=== PATIENT | male | born 1975 | race Caucasian/White ===

== ENCOUNTER 2022-09-17 21:10 | Inpatient (IN) | payer OTHER ==
[~2022-09-17] VITALS: Ht 195.6 cm; Wt 127.0 kg
[2022-09-17 22:16] LABS: BASOPHILS # (AUTO) 0.1 (0.0-0.1); BASOPHILS % 0.6 % (0.0-1.0); EOSINOPHILS # (AUTO) 0.4 (0.0-0.4); EOSINOPHILS % 4.3 % (0.0-6.0); HEMOGLOBIN 11.8 g/dL (14.0-18.0); LYMPHOCYTES # (AUTO) 2.4 (1.0-3.2); LYMPHOCYTES % 25.5 % (18.0-39.1); MEAN CORPUSCULAR HEMOGLOBIN 27.8 pg (28-32); MEAN CORPUSCULAR HGB CONC 32.8 g/dL (31-35); MEAN CORPUSCULAR VOLUME 84.9 fL (81-99); MONOCYTES # (AUTO) 0.7 (0.2-0.8); MONOCYTES % 7.6 % (4.4-11.3); NEUTROPHILS # (AUTO) 5.7 (2.1-6.9); NEUTROPHILS % 61.7 % (38.7-80.0); PLATELET COUNT 277 x10e3/uL (140-360); RED BLOOD COUNT 4.24 x10e6/uL (4.3-5.7); RED CELL DISTRIBUTION WIDTH 13.1 % (11.7-14.4)
[2022-09-17 22:17] LABS: CLARITY,URINE CLEAR (CLEAR); COLOR,URINE YELLOW (YELLOW); KETONES,URINE NEGATIVE (NEGATIVE); LEUKOCYTE ESTERASE ,URINE NEGATIVE (NEGATIVE); NITRITE,URINE NEGATIVE (NEGATIVE); PROTEIN,URINE DIPSTICK NEGATIVE (NEGATIVE); URINE UROBILINOGEN 0.2 mg/dL (0.2 - 1)
[2022-09-17 22:21] LABS: BACTERIA,URINE RARE /HPF; EPITHELIAL CELLS,URINE RARE /LPF; WBC,URINE (MAN) 0-5 /HPF (0-5)
[2022-09-17] MEDS: SODIUM CHLORIDE 0.9% 1000ML 1,000 ML IV SCH (22:26)
[2022-09-17] MEDS: Morphine 4mg INJECTION 4 MG/ML INJ IV PRN (22:27)
[2022-09-17] MEDS: ONDANSETRON HCL INJ 2MG/ML 2ML 2 MG/ML VIAL IV PRN (22:27)
[2022-09-17 22:34] LABS: ALBUMIN 3.6 g/dL (3.5-5.0); ALBUMIN/GLOBULIN RATIO 0.9 (0.8-2.0); ANION GAP 15.6 mmol/L (8-16); CALCIUM 9.5 mg/dL (8.4-10.2); CREATININE, SERUM 1.03 mg/dL (0.72-1.25); POTASSIUM 3.6 mmol/L (3.5-5.1)
[2022-09-18] MEDS: ONDANSETRON HCL INJ 2MG/ML 2ML 2 MG/ML VIAL IV PRN ×3 (04:56→17:16)
[2022-09-18] MEDS: Morphine 4mg INJECTION 4 MG/ML INJ IV PRN ×4 (04:56→21:35)
[2022-09-18] MEDS: SODIUM CHLORIDE 0.9% 1000ML 1,000 ML IV SCH ×2 (06:05→15:54)
[2022-09-18 10:28] LABS: BASOPHILS # (AUTO) 0.1 (0.0-0.1); BASOPHILS % 0.8 % (0.0-1.0); EOSINOPHILS # (AUTO) 0.3 (0.0-0.4); EOSINOPHILS % 4.8 % (0.0-6.0); HEMATOCRIT 37.9 % (38.2-49.6); LYMPHOCYTES # (AUTO) 1.7 (1.0-3.2); LYMPHOCYTES % 25.5 % (18.0-39.1); MEAN CORPUSCULAR HEMOGLOBIN 28.2 pg (28-32); MEAN CORPUSCULAR HGB CONC 31.7 g/dL (31-35); MEAN CORPUSCULAR VOLUME 89.2 fL (81-99); MONOCYTES # (AUTO) 0.4 (0.2-0.8); MONOCYTES % 6.5 % (4.4-11.3); NEUTROPHILS # (AUTO) 4.1 (2.1-6.9); NEUTROPHILS % 61.9 % (38.7-80.0); PLATELET COUNT 245 x10e3/uL (140-360); RED BLOOD COUNT 4.25 x10e6/uL (4.3-5.7); RED CELL DISTRIBUTION WIDTH 13.1 % (11.7-14.4)
[2022-09-18 11:07] LABS: ALBUMIN 3.4 g/dL (3.5-5.0); ALBUMIN/GLOBULIN RATIO 0.9 (0.8-2.0); ANION GAP 15.7 mmol/L (8-16); CALCIUM 8.8 mg/dL (8.4-10.2); CREATININE, SERUM 0.84 mg/dL (0.72-1.25); POTASSIUM 3.7 mmol/L (3.5-5.1)
[2022-09-18] MEDS ORDERED: HYDRALAZINE HCL 20 MG/ML VIAL IV PRN (11:15)
[2022-09-18] MEDS ORDERED: ACETAMINOPHEN 325 MG TAB PO PRN (11:15)
[2022-09-18] MEDS ORDERED: METOCLOPRAMIDE HCL 10 MG/2ML VIAL ONE (11:22)
[2022-09-18] MEDS ORDERED: PROPOFOL IV EMULSION 10 MG/ML 20 ML VIAL ONE (11:22)
[2022-09-18] MEDS ORDERED: SEVOFLURANE INHAL SOLN 250 ML PEN BTL ONE (11:22)
[2022-09-18] MEDS ORDERED: ONDANSETRON HCL INJ 2MG/ML 2ML 2 MG/ML VIAL ONE (11:22)
[2022-09-18] MEDS ORDERED: LIDOCAINE HCL 2% LOCAL INJ 5 ML SDV VIAL INJ ONE (11:22)
[2022-09-18] MEDS ORDERED: KETOROLAC TROMETHAMINE 30 MG/ML VIAL ONE (11:22)
[2022-09-18] MEDS ORDERED: POVIDONE IODINE 0.05% 0.05 % ML PO ONE (11:22)
[2022-09-18] MEDS ORDERED: BUPIVACAINE HCL 0.5% INJ 30 ML VIAL INJ ONE (11:49)
[2022-09-18] MEDS ORDERED: DEXAMETHASONE SOD PHOS INJ 4 MG/ML SDV ONE (11:50)
[2022-09-18] MEDS ORDERED: NEOSTIGMINE 1 MG/ML 10ML VIAL ONE (11:50)
[2022-09-18] MEDS ORDERED: DEXTROSE 50% SYRINGE 50 ML IV PRN (13:15)
[2022-09-18] MEDS ORDERED: FENTANYL CITRATE/PF 100MCG/2 ML INJ ONE (13:45)
[2022-09-18] MEDS ORDERED: MIDAZOLAM HCL 2 MG/2 ML VIAL ONE (13:45)
[2022-09-18 13:50] VITALS: BP 133/86; PULSE 79; RESP 18; TEMP 98.1; O2SAT 100
[2022-09-18 14:29] VITALS: BP 133/86; PULSE 79; RESP 18; TEMP 98.1; O2SAT 100
[2022-09-18 14:35] VITALS: BP 133/86; PULSE 79; RESP 18; TEMP 98.1; O2SAT 100
[2022-09-18] MEDS ORDERED: AMLODIPINE BESY10 MG PO (14:52)
[2022-09-18] MEDS ORDERED: CILOSTAZOL100 MG PO (14:52)
[2022-09-18] MEDS ORDERED: LISINOPRIL10 MG PO (14:52)
[2022-09-18] MEDS ORDERED: METFORMIN HCL850 MG PO (14:52)
[2022-09-18] MEDS ORDERED: SIMVASTATIN20 MG PO (14:52)
[2022-09-18] MEDS ORDERED: PAROXETINE HCL20 MG PO (14:52)
[2022-09-18] MEDS ORDERED: ASPIRIN81 MG PO (14:52)
[2022-09-18] MEDS ORDERED: HYDROCHLOROTHIA25 MG PO (14:52)
[2022-09-18] MEDS ORDERED: GEMFIBROZIL600 MG PO (14:52)
[2022-09-18] MEDS ORDERED: GABAPENTIN300 MG PO (14:52)
[2022-09-18 15:58] VITALS: BP 115/79; PULSE 76; RESP 20; TEMP 97.6; O2SAT 100
[2022-09-18] MEDS: INSULIN REGULAR, HUMAN 100 UNIT/1 ML SQ SCH ×2 (16:46→21:44)
[2022-09-18 20:27] VITALS: BP 124/88; PULSE 80; RESP 17; TEMP 98.1; O2SAT 100
[2022-09-19] VITALS (9 sets, daily range): BP systolic 121–150; BP diastolic 80–94; PULSE 84–104; RESP 17–21; TEMP 98.2–99.4; O2SAT 99–100
[2022-09-19] MEDS: Morphine 4mg INJECTION 4 MG/ML INJ IV PRN ×3 (03:35→10:59)
[2022-09-19] MEDS: SODIUM CHLORIDE 0.9% 1000ML 1,000 ML IV SCH ×2 (03:35→06:00)
[2022-09-19] MEDS: INSULIN REGULAR, HUMAN 100 UNIT/1 ML SQ SCH ×4 (08:21→21:12)
[2022-09-19] MEDS: HYDROMORPHONE 1MG/1ML INJ IV PRN ×3 (14:06→22:41)
[2022-09-19] MEDS: GABAPENTIN 300 MG CAP PO SCH (16:08)
[2022-09-19] MEDS: GEMFIBROZIL 600 MG TAB PO SCH (16:08)
[2022-09-19] MEDS: LISINOPRIL 10 MG TAB PO SCH (16:15)
[2022-09-19] MEDS: SIMVASTATIN 20 MG TAB PO SCH (20:50)
[2022-09-19] MEDS: HYDROCODONE/APAP 5MG-325MG TAB PO PRN (21:05)
[2022-09-19] MEDS: ONDANSETRON HCL INJ 2MG/ML 2ML 2 MG/ML VIAL IV PRN (22:41)
[2022-09-20] VITALS (9 sets, daily range): BP systolic 114–143; BP diastolic 55–88; PULSE 78–97; RESP 15–19; TEMP 98.2–98.7; O2SAT 98–100
[2022-09-20] MEDS: HYDROMORPHONE 1MG/1ML INJ IV PRN ×4 (02:51→22:13)
[2022-09-20 05:38] LABS: BASOPHILS % 0.6 % (0.0-1.0); EOSINOPHILS # (AUTO) 0.4 (0.0-0.4); EOSINOPHILS % 5.7 % (0.0-6.0); HEMATOCRIT 34.7 % (38.2-49.6); HEMOGLOBIN 11.1 g/dL (14.0-18.0); LYMPHOCYTES # (AUTO) 1.6 (1.0-3.2); LYMPHOCYTES % 21.5 % (18.0-39.1); MEAN CORPUSCULAR VOLUME 87.4 fL (81-99); MONOCYTES # (AUTO) 0.6 (0.2-0.8); MONOCYTES % 8.9 % (4.4-11.3); NEUTROPHILS # (AUTO) 4.5 (2.1-6.9); NEUTROPHILS % 62.9 % (38.7-80.0); PLATELET COUNT 217 x10e3/uL (140-360); RED BLOOD COUNT 3.97 x10e6/uL (4.3-5.7)
[2022-09-20 05:52] LABS: CREATININE, SERUM 0.77 mg/dL (0.72-1.25)
[2022-09-20 05:53] LABS: CALCIUM 8.6 mg/dL (8.4-10.2)
[2022-09-20] MEDS: GEMFIBROZIL 600 MG TAB PO SCH ×2 (08:03→16:45)
[2022-09-20] MEDS: HYDROCHLOROTHIAZIDE 25 MG TAB PO SCH (08:03)
[2022-09-20] MEDS: ASPIRIN 81 MG CHEW TAB PO SCH (08:03)
[2022-09-20] MEDS: GABAPENTIN 300 MG CAP PO SCH ×2 (08:04→16:45)
[2022-09-20] MEDS: AMLODIPINE BESYLATE 10 MG TAB PO SCH (08:04)
[2022-09-20] MEDS: PAROXETINE HCL 20 MG TAB PO SCH (08:04)
[2022-09-20] MEDS: LISINOPRIL 10 MG TAB PO SCH (08:04)
[2022-09-20] MEDS: CILOSTAZOL 100 MG TAB PO SCH (08:04)
[2022-09-20] MEDS: INSULIN REGULAR, HUMAN 100 UNIT/1 ML SQ SCH ×4 (08:08→21:27)
[2022-09-20] MEDS ORDERED: LISINOPRIL 10 MG TAB PO SCH (09:00)
[2022-09-20] MEDS: HYDROCODONE/APAP 5MG-325MG TAB PO PRN (12:15)
[2022-09-20] MEDS: SIMVASTATIN 20 MG TAB PO SCH (21:22)
[2022-09-21 00:39] VITALS: BP 128/88; PULSE 87; RESP 16; TEMP 98.1; O2SAT 98
[2022-09-21 06:41] VITALS: BP 143/92; PULSE 89; RESP 18; TEMP 98.1; O2SAT 98
[2022-09-21] MEDS: INSULIN REGULAR, HUMAN 100 UNIT/1 ML SQ SCH ×3 (07:30→16:30)
[2022-09-21] MEDS: ASPIRIN 81 MG CHEW TAB PO SCH (10:45)
[2022-09-21] MEDS: GABAPENTIN 300 MG CAP PO SCH ×2 (10:46→17:49)
[2022-09-21] MEDS: CILOSTAZOL 100 MG TAB PO SCH (10:46)
[2022-09-21] MEDS: PAROXETINE HCL 20 MG TAB PO SCH (10:46)
[2022-09-21] MEDS: AMLODIPINE BESYLATE 10 MG TAB PO SCH (10:47)
[2022-09-21] MEDS: GEMFIBROZIL 600 MG TAB PO SCH ×2 (10:47→17:49)
[2022-09-21] MEDS: HYDROCHLOROTHIAZIDE 25 MG TAB PO SCH (10:48)
[2022-09-21] MEDS: LISINOPRIL 10 MG TAB PO SCH (10:48)
[2022-09-21] MEDS ORDERED: ULTRAM 50MG50 MG PO ×2 (11:34→17:20)
[2022-09-21] MEDS ORDERED: CEFAZOLIN SODIUM 2 GM in SODIUM CHLORIDE 0.9% 100 ML IV SCH (16:00)
[2022-09-21] MEDS ORDERED: ONDANSETRON HCL 4 MG ORAL DISINTEGRATING TAB PO PRN (16:00)
[2022-09-21] MEDS ORDERED: CEPHALEXIN500 MG PO (16:25)
[2022-09-21] MEDS: HYDROMORPHONE 1MG/1ML INJ IV PRN (17:50)
== END 2022-09-21 18:02 | disposition home or self-care (01) | DRG 617 ==
LOC: ER 21:15 → ERHOLD 21:46 → PACU V 09-18 13:18 → MED/SURG2 09-18 13:46
PROVIDERS: ADMIT Internal Medicine; ATTEND Internal Medicine
PROC: 0Y6N0Z9 Detachment at Left Foot, Partial 1st Ray, Open Approach (ICD-10-PCS; principal; 2022-09-18 12:22)
DX: E11.69 Type 2 diabetes mellitus with other specified complication (principal); L97.528 Non-pressure chronic ulcer of other part of left foot with other specified severity; M86.9 Osteomyelitis, unspecified; Z16.24 Resistance to multiple antibiotics; E11.621 Type 2 diabetes mellitus with foot ulcer; Z20.822 Contact with and (suspected) exposure to COVID-19; E11.42 Type 2 diabetes mellitus with diabetic polyneuropathy; E78.5 Hyperlipidemia, unspecified; M10.9 Gout, unspecified; I10 Essential (primary) hypertension; E78.00 Pure hypercholesterolemia, unspecified; B95.61 Methicillin susceptible Staphylococcus aureus infection as the cause of diseases classified elsewhere; Z89.422 Acquired absence of other left toe(s); Z89.421 Acquired absence of other right toe(s); Z79.84 Long term (current) use of oral hypoglycemic drugs; Z79.899 Other long term (current) drug therapy
CPT/HCPCS: 36415; 71046; 80048; 80053; 81001; 82948; 85025; 87071; 87075; 87186; 87205; 88304; 88305; 88311; 99284; J0690; J1100; J1170; J1885; J2001; J2250; J2270; J2405; J2543; J2710; J2765; J7030

== ENCOUNTER 2023-07-08 18:50 | Inpatient (IN) | payer OTHER ==
[~2023-07-08] VITALS: Ht 193 cm; Wt 124.7 kg
[~2023-07-08 18:50] MED LIST: AMLODIPINE BESY10 MG PO; ASPIRIN81 MG PO; CEPHALEXIN500 MG PO; CILOSTAZOL100 MG PO; GABAPENTIN300 MG PO; GEMFIBROZIL600 MG PO; HYDROCHLOROTHIA25 MG PO; Insulin Glargine SQ; Insulin Lispro SQ; LISINOPRIL10 MG PO; METFORMIN HCL850 MG PO; PAROXETINE HCL20 MG PO; SIMVASTATIN20 MG PO; TOPIRAMATE25 MG PO; ULTRAM 50MG50 MG PO
[2023-07-08] MEDS ORDERED: DEXTROSE 50% SYRINGE 50 ML IV PRN (19:45)
[2023-07-08 19:55] LABS: BASOPHILS # (AUTO) 0.1 (0.0-0.1); BASOPHILS % 0.6 % (0.0-1.0); EOSINOPHILS # (AUTO) 0.4 (0.0-0.4); EOSINOPHILS % 3.9 % (0.0-6.0); HEMATOCRIT 37.3 % (38.2-49.6); HEMOGLOBIN 12.7 g/dL (14.0-18.0); LYMPHOCYTES # (AUTO) 2.2 (1.0-3.2); LYMPHOCYTES % 21.7 % (18.0-39.1); MEAN CORPUSCULAR HEMOGLOBIN 28.6 pg (28-32); MONOCYTES # (AUTO) 0.7 (0.2-0.8); MONOCYTES % 6.8 % (4.4-11.3); NEUTROPHILS # (AUTO) 6.7 (2.1-6.9); NEUTROPHILS % 66.7 % (38.7-80.0); PLATELET COUNT 184 x10e3/uL (140-360); RED BLOOD COUNT 4.44 x10e6/uL (4.3-5.7); RED CELL DISTRIBUTION WIDTH 13.1 % (11.7-14.4); WHITE BLOOD COUNT 9.97 x10e3/uL (4.8-10.8)
[2023-07-08 20:05] LABS: INR 0.89; PARTIAL THROMBOPLASTIN TIME 29.2 seconds (23.8-35.5); PROTHROMBIN TIME 12.7 seconds (11.9-14.5)
[2023-07-08] MEDS: ONDANSETRON HCL INJ 2MG/ML 2ML 2 MG/ML VIAL IV PRN (20:10)
[2023-07-08] MEDS: Vancomycin IV 1 GM in SODIUM CHLORIDE 0.9% 250ML 250 ML IV SCH (20:10)
[2023-07-08] MEDS: Morphine 4mg INJECTION 4 MG/ML INJ IV PRN (20:10)
[2023-07-08 20:14] LABS: ALBUMIN 3.8 g/dL (3.5-5.0); ALBUMIN/GLOBULIN RATIO 1.1 (0.8-2.0); ANION GAP 16.9 mmol/L (8-16); BILIRUBIN,TOTAL 0.4 mg/dL (0.2-1.2); CREATININE, SERUM 1.13 mg/dL (0.72-1.25); POTASSIUM 3.9 mmol/L (3.5-5.1); TOTAL PROTEIN 7.2 g/dL (6.5-8.1)
[2023-07-08] MEDS: INSULIN REGULAR, HUMAN 100 UNIT/1 ML SQ SCH (21:00)
[2023-07-08] MEDS: SODIUM CHLORIDE 0.9% 1000ML 1,000 ML IV SCH (21:45)
[2023-07-08] MEDS ORDERED: INSULIN GLARGINE 100 UNITS/ML VIAL SQ SCH (21:45)
[2023-07-09 05:21] LABS: BASOPHILS # (AUTO) 0.1 (0.0-0.1); BASOPHILS % 0.6 % (0.0-1.0); EOSINOPHILS # (AUTO) 0.5 (0.0-0.4); EOSINOPHILS % 5.9 % (0.0-6.0); HEMATOCRIT 32.9 % (38.2-49.6); HEMOGLOBIN 11.1 g/dL (14.0-18.0); LYMPHOCYTES # (AUTO) 1.7 (1.0-3.2); LYMPHOCYTES % 21.8 % (18.0-39.1); MEAN CORPUSCULAR HGB CONC 33.7 g/dL (31-35); MEAN CORPUSCULAR VOLUME 85.9 fL (81-99); MONOCYTES # (AUTO) 0.7 (0.2-0.8); MONOCYTES % 8.3 % (4.4-11.3); NEUTROPHILS # (AUTO) 4.9 (2.1-6.9); PLATELET COUNT 166 x10e3/uL (140-360); RED BLOOD COUNT 3.83 x10e6/uL (4.3-5.7); RED CELL DISTRIBUTION WIDTH 13.4 % (11.7-14.4); WHITE BLOOD COUNT 7.83 x10e3/uL (4.8-10.8)
[2023-07-09 06:33] LABS: ALBUMIN 3.2 g/dL (3.5-5.0); ALBUMIN/GLOBULIN RATIO 1.1 (0.8-2.0); BILIRUBIN,TOTAL 0.4 mg/dL (0.2-1.2); CALCIUM 8.4 mg/dL (8.4-10.2); CREATININE, SERUM 0.89 mg/dL (0.72-1.25); TOTAL PROTEIN 6.1 g/dL (6.5-8.1)
[2023-07-09] MEDS: GEMFIBROZIL 600 MG TAB PO SCH (07:30)
[2023-07-09 07:51] VITALS: BP 130/80; PULSE 78; RESP 18; TEMP 97.5; O2SAT 100
[2023-07-09 07:55] VITALS: BP 130/80; PULSE 78; RESP 18; TEMP 97.5; O2SAT 100
[2023-07-09] MEDS: AMLODIPINE BESYLATE 10 MG TAB PO SCH (08:19)
[2023-07-09] MEDS: CILOSTAZOL 100 MG TAB PO SCH (08:19)
[2023-07-09] MEDS: LISINOPRIL 20 MG TAB PO SCH (08:19)
[2023-07-09] MEDS: PAROXETINE HCL 20 MG TAB PO SCH (08:19)
[2023-07-09] MEDS: HYDROCHLOROTHIAZIDE 25 MG TAB PO SCH (08:19)
[2023-07-09] MEDS: ASPIRIN 81 MG CHEW TAB PO SCH (08:19)
[2023-07-09] MEDS: TOPIRAMATE 25 MG TAB PO SCH (08:20)
[2023-07-09] MEDS: GABAPENTIN 300 MG CAP PO SCH (08:20)
[2023-07-09] MEDS ORDERED: PIPERACILLIN/TAZOBACTAM 3.375 GM VIAL ONE ×2 (09:35→15:50)
[2023-07-09] MEDS ORDERED: SODIUM CHLORIDE 0.9% 250ML 250 ML ONE ×2 (09:36→19:28)
[2023-07-09] MEDS ORDERED: SODIUM CHLORIDE 0.9% 1000ML 1,000 ML ONE ×2 (09:36→18:03)
[2023-07-09] MEDS ORDERED: Vancomycin IV 1 GM VIAL ONE ×2 (09:37→19:27)
[2023-07-09] MEDS ORDERED: SODIUM CHLORIDE 0.9% INJ 100 ML BAG ONE (10:24)
[2023-07-09] MEDS ORDERED: PROPOFOL IV EMULSION 10 MG/ML 20 ML VIAL ONE (10:24)
[2023-07-09] MEDS ORDERED: ONDANSETRON HCL INJ 2MG/ML 2ML 2 MG/ML VIAL ONE ×2 (10:24→15:30)
[2023-07-09] MEDS ORDERED: DEXMEDETOMIDINE HCL 200 MCG/2 ML VIAL ONE (10:24)
[2023-07-09] MEDS ORDERED: ACETAMINOPHEN 1000 MG/100 ML IV ONE (10:24)
[2023-07-09] MEDS ORDERED: LIDOCAINE HCL 2% LOCAL INJ 5 ML SDV VIAL INJ ONE (10:24)
[2023-07-09] MEDS ORDERED: METOCLOPRAMIDE HCL 10 MG/2ML VIAL ONE (10:24)
[2023-07-09] MEDS ORDERED: SEVOFLURANE INHAL SOLN 250 ML PEN BTL ONE (10:24)
[2023-07-09] MEDS ORDERED: NOVOLIN N100 UNIT/1 SQ (10:32)
[2023-07-09] MEDS ORDERED: NOVOLIN R100 UNIT/1 SQ (10:34)
[2023-07-09] MEDS ORDERED: FLUOXETINE HCL 20 MG CAP ONE (10:50)
[2023-07-09] MEDS ORDERED: BUPIVACAINE HCL 0.5% INJ 30 ML VIAL INJ ONE (10:52)
[2023-07-09] MEDS ORDERED: NEOSTIGMINE 1 MG/ML 10ML VIAL ONE (10:52)
[2023-07-09] MEDS ORDERED: PAROXETINE HCL 20 MG TAB ONE (10:53)
[2023-07-09] MEDS: PAROXETINE HCL 20 MG TAB PO ONE (10:53)
[2023-07-09] MEDS ORDERED: Morphine 4mg INJECTION 4 MG/ML INJ ONE ×2 (15:31→19:18)
[2023-07-09] MEDS ORDERED: CILOSTAZOL 100 MG TAB ONE (15:49)
[2023-07-09] MEDS ORDERED: GABAPENTIN 300 MG CAP ONE (15:49)
[2023-07-09] MEDS ORDERED: FENTANYL CITRATE/PF 100MCG/2 ML INJ ONE (15:50)
[2023-07-09] MEDS ORDERED: GEMFIBROZIL 600 MG TAB ONE (15:50)
[2023-07-09] MEDS ORDERED: MIDAZOLAM HCL 2 MG/2 ML VIAL ONE (15:50)
[2023-07-09] MEDS ORDERED: TOPIRAMATE 25 MG TAB ONE (15:50)
[2023-07-09] MEDS ORDERED: INSULIN REGULAR, HUMAN 100 UNIT/1 ML ONE (15:54)
[2023-07-09] MEDS: ACETAMINOPHEN 325 MG TAB PO PRN (16:30)
[2023-07-09] MEDS ORDERED: ACETAMINOPHEN 325 MG TAB ONE (16:33)
[2023-07-09 16:36] VITALS: BP 128/87; PULSE 87; RESP 17; TEMP 97.8; O2SAT 99
[2023-07-09] MEDS: HYDROCODONE/APAP 5MG-325MG TAB PO PRN (17:43)
[2023-07-09] MEDS ORDERED: HYDROCODONE/APAP 5MG-325MG TAB ONE (17:46)
[2023-07-09] MEDS ORDERED: INSULIN GLARGINE 100 UNITS/ML VIAL ONE (19:30)
[2023-07-09] MEDS: SIMVASTATIN 20 MG TAB PO SCH (19:31)
[2023-07-09] MEDS ORDERED: SIMVASTATIN 20 MG TAB ONE (19:32)
[2023-07-09] MEDS: INSULIN GLARGINE 100 UNITS/ML VIAL SQ SCH (19:38)
[2023-07-09 20:00] VITALS: BP 138/85; PULSE 97; RESP 18; TEMP 98; O2SAT 98
[2023-07-09] MEDS ORDERED: HYDROMORPHONE 1MG/1ML INJ ONE (22:35)
[2023-07-09] MEDS: HYDROMORPHONE 1MG/1ML INJ IV PRN (22:35)
[2023-07-10] VITALS (7 sets, daily range): BP systolic 121–146; BP diastolic 75–98; PULSE 104–118; RESP 18–20; TEMP 98.9–99.3; O2SAT 97–100
[2023-07-10] MEDS ORDERED: PIPERACILLIN/TAZOBACTAM 3.375 GM VIAL ONE ×2 (00:18→05:29)
[2023-07-10] MEDS ORDERED: HYDROMORPHONE 1MG/1ML INJ ONE ×2 (02:59→07:29)
[2023-07-10] MEDS ORDERED: SODIUM CHLORIDE 0.9% 1000ML 1,000 ML ONE (05:30)
[2023-07-10 06:06] LABS: BASOPHILS % 0.4 % (0.0-1.0); EOSINOPHILS # (AUTO) 0.3 (0.0-0.4); EOSINOPHILS % 2.9 % (0.0-6.0); HEMATOCRIT 34.9 % (38.2-49.6); HEMOGLOBIN 11.2 g/dL (14.0-18.0); LYMPHOCYTES # (AUTO) 1.4 (1.0-3.2); MEAN CORPUSCULAR HEMOGLOBIN 28.2 pg (28-32); MEAN CORPUSCULAR HGB CONC 32.1 g/dL (31-35); MEAN CORPUSCULAR VOLUME 87.9 fL (81-99); MONOCYTES # (AUTO) 0.9 (0.2-0.8); MONOCYTES % 8.1 % (4.4-11.3); NEUTROPHILS # (AUTO) 7.9 (2.1-6.9); NEUTROPHILS % 75.1 % (38.7-80.0); PLATELET COUNT 161 x10e3/uL (140-360); RED BLOOD COUNT 3.97 x10e6/uL (4.3-5.7); RED CELL DISTRIBUTION WIDTH 12.9 % (11.7-14.4); WHITE BLOOD COUNT 10.54 x10e3/uL (4.8-10.8)
[2023-07-10] MEDS ORDERED: HYDROCODONE/APAP 5MG-325MG TAB ONE (06:08)
[2023-07-10 06:20] LABS: ANION GAP 13.1 mmol/L (8-16); CALCIUM 8.5 mg/dL (8.4-10.2); POTASSIUM 4.1 mmol/L (3.5-5.1)
[2023-07-10] MEDS ORDERED: GEMFIBROZIL 600 MG TAB ONE (07:28)
[2023-07-10] MEDS ORDERED: LISINOPRIL 20 MG TAB ONE (08:59)
[2023-07-10] MEDS ORDERED: TOPIRAMATE 25 MG TAB ONE (09:00)
[2023-07-10] MEDS ORDERED: HYDROCHLOROTHIAZIDE 25 MG TAB ONE (09:00)
[2023-07-10] MEDS ORDERED: PAROXETINE HCL 20 MG TAB ONE (09:00)
[2023-07-10] MEDS ORDERED: GABAPENTIN 300 MG CAP ONE (09:05)
[2023-07-10] MEDS ORDERED: AMLODIPINE BESYLATE 10 MG TAB ONE (09:06)
[2023-07-10] MEDS ORDERED: ASPIRIN 81 MG CHEW TAB ONE (09:06)
[2023-07-10] MEDS ORDERED: CILOSTAZOL 100 MG TAB ONE (09:06)
[2023-07-10] MEDS: HYDROCODONE/APAP 7.5MG-325MG 1 EA TAB PO PRN (10:34)
[2023-07-10] MEDS ORDERED: HYDROCODONE/APAP 7.5MG-325MG 1 EA TAB ONE (10:36)
[2023-07-10] MEDS: INSULIN GLARGINE 100 UNITS/ML VIAL SQ SCH (21:05)
[2023-07-11] VITALS (8 sets, daily range): BP systolic 118–139; BP diastolic 67–88; PULSE 90–99; RESP 18–20; TEMP 97.6–98.3; O2SAT 98–100
[2023-07-11 06:04] LABS: BASOPHILS # (AUTO) 0.1 (0.0-0.1); BASOPHILS % 0.6 % (0.0-1.0); EOSINOPHILS # (AUTO) 0.5 (0.0-0.4); EOSINOPHILS % 5.4 % (0.0-6.0); HEMATOCRIT 32.6 % (38.2-49.6); HEMOGLOBIN 10.8 g/dL (14.0-18.0); LYMPHOCYTES # (AUTO) 1.5 (1.0-3.2); LYMPHOCYTES % 17.8 % (18.0-39.1); MEAN CORPUSCULAR HEMOGLOBIN 29.3 pg (28-32); MEAN CORPUSCULAR HGB CONC 33.1 g/dL (31-35); MEAN CORPUSCULAR VOLUME 88.3 fL (81-99); MONOCYTES # (AUTO) 0.9 (0.2-0.8); MONOCYTES % 10.4 % (4.4-11.3); NEUTROPHILS # (AUTO) 5.7 (2.1-6.9); NEUTROPHILS % 65.5 % (38.7-80.0); RED BLOOD COUNT 3.69 x10e6/uL (4.3-5.7); WHITE BLOOD COUNT 8.66 x10e3/uL (4.8-10.8)
[2023-07-11 06:17] LABS: PLATELET COUNT 138 x10e3/uL (140-360)
[2023-07-11 06:44] LABS: ANION GAP 13.1 mmol/L (8-16); CALCIUM 8.8 mg/dL (8.4-10.2); CREATININE, SERUM 0.95 mg/dL (0.72-1.25); POTASSIUM 4.1 mmol/L (3.5-5.1)
[2023-07-11] MEDS ORDERED: GEMFIBROZIL 600 MG TAB ONE (08:20)
[2023-07-11] MEDS ORDERED: LISINOPRIL 20 MG TAB ONE (08:21)
[2023-07-11] MEDS ORDERED: HYDROCODONE/APAP 7.5MG-325MG 1 EA TAB ONE ×2 (08:21→11:57)
[2023-07-11] MEDS ORDERED: GABAPENTIN 300 MG CAP ONE ×2 (08:21→15:16)
[2023-07-11] MEDS ORDERED: AMLODIPINE BESYLATE 10 MG TAB ONE (08:22)
[2023-07-11] MEDS ORDERED: CILOSTAZOL 100 MG TAB ONE ×2 (08:22→15:16)
[2023-07-11] MEDS ORDERED: TOPIRAMATE 25 MG TAB ONE ×2 (08:22→15:17)
[2023-07-11] MEDS ORDERED: ASPIRIN 81 MG CHEW TAB ONE (08:22)
[2023-07-11] MEDS ORDERED: PAROXETINE HCL 20 MG TAB ONE (08:23)
[2023-07-11] MEDS ORDERED: Vancomycin IV 1 GM VIAL ONE (08:23)
[2023-07-11] MEDS ORDERED: HYDROCHLOROTHIAZIDE 25 MG TAB ONE (08:23)
[2023-07-11] MEDS ORDERED: SODIUM CHLORIDE 0.9% 250ML 250 ML ONE (08:23)
[2023-07-11] MEDS ORDERED: HYDROMORPHONE 1MG/1ML INJ ONE ×2 (09:31→13:24)
[2023-07-11] MEDS ORDERED: PIPERACILLIN/TAZOBACTAM 3.375 GM VIAL ONE ×2 (11:58→15:17)
[2023-07-11] MEDS: INSULIN REGULAR, HUMAN 100 UNIT/1 ML SQ SCH (12:27)
[2023-07-11] MEDS: HYDROMORPHONE 1MG/1ML INJ IV PRN (13:33)
[2023-07-12] VITALS (7 sets, daily range): BP systolic 112–137; BP diastolic 62–87; PULSE 97–101; RESP 16–20; TEMP 97.8–98.6; O2SAT 98–100
[2023-07-12] MEDS ORDERED: HYDROMORPHONE 1MG/1ML INJ ONE ×2 (07:48→11:21)
[2023-07-12] MEDS ORDERED: GEMFIBROZIL 600 MG TAB ONE ×2 (07:51→11:21)
[2023-07-12] MEDS ORDERED: CILOSTAZOL 100 MG TAB ONE ×2 (07:52→11:21)
[2023-07-12] MEDS ORDERED: HYDROCHLOROTHIAZIDE 25 MG TAB ONE ×2 (07:52→11:21)
[2023-07-12] MEDS ORDERED: GABAPENTIN 300 MG CAP ONE ×2 (07:52→11:21)
[2023-07-12] MEDS ORDERED: ASPIRIN 81 MG CHEW TAB ONE ×2 (07:52→11:21)
[2023-07-12] MEDS ORDERED: AMLODIPINE BESYLATE 10 MG TAB ONE ×2 (07:52→11:21)
[2023-07-12] MEDS ORDERED: SODIUM CHLORIDE 0.9% 250ML 250 ML ONE (07:53)
[2023-07-12] MEDS ORDERED: Vancomycin IV 1 GM VIAL ONE ×2 (07:53→11:21)
[2023-07-12] MEDS ORDERED: PIPERACILLIN/TAZOBACTAM 3.375 GM VIAL ONE ×2 (07:54→11:21)
[2023-07-12] MEDS ORDERED: TOPIRAMATE 25 MG TAB ONE ×2 (07:57→11:21)
[2023-07-12] MEDS ORDERED: PAROXETINE HCL 20 MG TAB ONE ×2 (07:57→11:21)
[2023-07-12] MEDS ORDERED: SIMVASTATIN 20 MG TAB ONE ×2 (07:57→11:21)
[2023-07-12] MEDS ORDERED: LISINOPRIL 20 MG TAB ONE ×3 (07:58→11:21)
[2023-07-12] MEDS ORDERED: HYDROCODONE/APAP 7.5MG-325MG 1 EA TAB ONE ×2 (08:53→11:21)
[2023-07-12] MEDS ORDERED: Sodium Chloride 0.9% 50ML Bag ONE (11:21)
[2023-07-12] MEDS ORDERED: SODIUM CHLORIDE 0.9% INJ 250 ML BAG ONE (11:21)
[2023-07-13] VITALS: BP 125/70; PULSE 75; RESP 20; TEMP 97.7
[2023-07-13 08:00] VITALS: BP 128/80; PULSE 94; RESP 16; TEMP 98.3; O2SAT 100
[2023-07-13 08:25] VITALS: BP 128/80; PULSE 94; RESP 16; TEMP 98.3; O2SAT 100
[2023-07-13] MEDS: Vancomycin IV 1 GM in SODIUM CHLORIDE 0.9% 250ML 250 ML IV SCH (10:19)
[2023-07-13] MEDS ORDERED: ZYVOX600 MG PO (10:50)
[2023-07-13] MEDS ORDERED: PIPERACILLIN/TAZOBACTAM 3.375 GM VIAL ONE (11:27)
[2023-07-13] MEDS ORDERED: SODIUM CHLORIDE 0.9% INJ 250 ML BAG ONE (11:27)
[2023-07-13] MEDS ORDERED: AMLODIPINE BESYLATE 10 MG TAB ONE (11:27)
[2023-07-13] MEDS ORDERED: HYDROCHLOROTHIAZIDE 25 MG TAB ONE (11:27)
[2023-07-13] MEDS ORDERED: ASPIRIN 81 MG CHEW TAB ONE (11:27)
[2023-07-13] MEDS ORDERED: PAROXETINE HCL 20 MG TAB ONE (11:27)
[2023-07-13] MEDS ORDERED: SIMVASTATIN 20 MG TAB ONE (11:27)
[2023-07-13] MEDS ORDERED: Sodium Chloride 0.9% 50ML Bag ONE (11:27)
[2023-07-13] MEDS ORDERED: Vancomycin IV 1 GM VIAL ONE (11:27)
[2023-07-13] MEDS ORDERED: GEMFIBROZIL 600 MG TAB ONE (11:27)
[2023-07-13] MEDS ORDERED: GABAPENTIN 300 MG CAP ONE (11:27)
[2023-07-13] MEDS ORDERED: LISINOPRIL 20 MG TAB ONE (11:27)
[2023-07-13] MEDS ORDERED: CILOSTAZOL 100 MG TAB ONE (11:27)
[2023-07-13] MEDS ORDERED: HYDROCODONE/APAP 7.5MG-325MG 1 EA TAB ONE (11:27)
[2023-07-13] MEDS ORDERED: TOPIRAMATE 25 MG TAB ONE (11:27)
[2023-07-13 12:00] VITALS: BP 125/82; PULSE 91; RESP 18; TEMP 98.2; O2SAT 100
== END 2023-07-13 12:25 | disposition home or self-care (01) | DRG 617 ==
LOC: ER 19:13 → ERHOLD 19:39 → MED/SURG 07-09 07:43
PROVIDERS: ADMIT Internal Medicine; ATTEND Internal Medicine
PROC: 0Y6M0ZD Detachment at Right Foot, Partial 4th Ray, Open Approach (ICD-10-PCS; 2023-07-09)
PROC: 0Y6M0ZF Detachment at Right Foot, Partial 5th Ray, Open Approach (ICD-10-PCS; 2023-07-09)
PROC: 0YQM0ZZ Repair Right Foot, Open Approach (ICD-10-PCS; 2023-07-09)
PROC: 0Y6M0ZC Detachment at Right Foot, Partial 3rd Ray, Open Approach (ICD-10-PCS; principal; 2023-07-09 11:43)
DX: E11.69 Type 2 diabetes mellitus with other specified complication (principal); E11.52 Type 2 diabetes mellitus with diabetic peripheral angiopathy with gangrene; L03.115 Cellulitis of right lower limb; M86.171 Other acute osteomyelitis, right ankle and foot; T81.30XA Disruption of wound, unspecified, initial encounter; I96 Gangrene, not elsewhere classified; L97.518 Non-pressure chronic ulcer of other part of right foot with other specified severity; I10 Essential (primary) hypertension; F32.A Depression, unspecified; M10.9 Gout, unspecified; E11.40 Type 2 diabetes mellitus with diabetic neuropathy, unspecified; Z95.810 Presence of automatic (implantable) cardiac defibrillator; Z89.412 Acquired absence of left great toe; Z89.421 Acquired absence of other right toe(s); Z87.891 Personal history of nicotine dependence; Z88.5 Allergy status to narcotic agent; R00.0 Tachycardia, unspecified; Z11.52 Encounter for screening for COVID-19; Z79.84 Long term (current) use of oral hypoglycemic drugs; Z79.82 Long term (current) use of aspirin; Y83.5 Amputation of limb(s) as the cause of abnormal reaction of the patient, or of later complication, without mention of misadventure at the time of the procedure; F41.8 Other specified anxiety disorders; E78.00 Pure hypercholesterolemia, unspecified; E11.621 Type 2 diabetes mellitus with foot ulcer; E11.65 Type 2 diabetes mellitus with hyperglycemia; E66.9 Obesity, unspecified; B95.2 Enterococcus as the cause of diseases classified elsewhere; Z68.33 Body mass index [BMI] 33.0-33.9, adult
CPT/HCPCS: 36415; 80048; 80053; 80202; 82948; 85025; 85610; 85730; 87040; 87071; 87075; 87186; 87205; 88304; 88307; 88311; 94799; 99284; J0690; J1170; J1815; J2001; J2250; J2270; J2405; J2543; J2710; J2765; J7030; J7050; U0002